=== PATIENT | male | born 1995 | race African-American/Black ===

== ENCOUNTER 2019-08-08 14:54 | Emergency (ER) | payer SELFPAY ==
[~2019-08-08] VITALS: Ht 177.8 cm; Wt 70.3 kg
[2019-08-08 16:23] VITALS: BP 132/72
== END 2019-08-08 16:25 | disposition home or self-care (01) ==
LOC: ER 14:54
DX: R10.84 Generalized abdominal pain (principal); F12.10 Cannabis abuse, uncomplicated

== ENCOUNTER 2020-02-18 09:54 | Emergency (ER) | payer MEDICAID, OTHER ==
[~2020-02-18] VITALS: Ht 177.8 cm; Wt 65.8 kg
[2020-02-18 10:27] VITALS: BP 126/72
== END 2020-02-18 13:12 | disposition home or self-care (01) ==
LOC: ER 09:54
DX: R05 Cough (principal); Z20.828 Contact with and (suspected) exposure to other viral communicable diseases
CPT/HCPCS: 36415; 71045; 87426; 99284; C9803; U0003

== ENCOUNTER → 2020-09-24 | Outpatient (CLI) | payer MEDICAID | END | disposition home or self-care (01) | LOC: LAB 15:56 | PROVIDERS: ATTEND Nurse Practitioner Family | DX: Z20.822 Contact with and (suspected) exposure to COVID-19 (principal) | CPT/HCPCS: 36415; 87426 ==

== ENCOUNTER 2024-02-12 09:25 | Emergency (ER) | payer MEDICAID ==
[~2024-02-12] VITALS: Ht 172.7 cm; Wt 64.8 kg
[2024-02-12 10:35] VITALS: BP 112/68; PULSE 71; RESP 16; TEMP 97.9; O2SAT 100
[2024-02-12] MEDS ORDERED: IBUP-1456 PO (11:12)
[2024-02-12] MEDS ORDERED: BACDST PO (11:12)
[2024-02-12] MEDS ORDERED: ACET500T58 PO (11:12)
--- NOTE | 2024-02-12 11:12 | ED.PDOC ---
History of Present Illness(SKN HPI Comments 28 year old male presents for possible abscess to the buttock. Started 4 days Worsens with sitting Taking no medications Denies F/C/N/V/D Chief Complaint: Abscess Time Seen by MD: 10:09 Primary Care Provider: OBEY History of Present Illness: Nurses Notes Allergies: Coded Allergies: NO KNOWN ALLERGIES (Unverified , 08/08/19) Home Meds Active Scripts Acetaminophen (Acetaminophen) 500 Mg Tab, 500 MG PO Q6HP PRN for 10 Days, #40 TAB 0 Refills Prov:JOHANNY LUND WASH OIL COOLER OPERATOR 02/12/24 Ibuprofen (Ibuprofen) 800 Mg Tab, 1 TAB PO TID for 14 Days, #42 TAB 0 Refills Prov:JOHANNY LUND WASH OIL COOLER OPERATOR 02/12/24 Sulfamethoxazole W/Trimethopri (Bactrim Ds Tablet) 1 Tab Tb, 1 TAB PO BID for 7 Days, #14 TAB 0 Refills Prov:JOHANNY LUND WASH OIL COOLER OPERATOR 02/12/24 Information Source: Patient Mode of Arrival: Ambulatory Past Medical History PAST MEDICAL HISTORY: Denies Surgical History: Denies all surgeries Family History Family History: Family hx of DM Social History Smoker: Non-Smoker Alcohol: Denies ETOH Use Drugs: Marijuana Lives In: Home All Other Systems: Reviewed and Negative (PER HPI) Physical Exam General Appearance: No Apparent Distress, Normal HEENT: Normal ENT Inspection, Pharynx Normal, TMs Normal Neck: Full Range of Motion, Non-Tender, Normal, Normal Inspection Respiratory: Chest Non-Tender, Lungs Clear, No Accessory Muscle Use, No Respiratory Distress, Normal Breath Sounds Cardiovascular: No Edema, No JVD, No Murmur, No Gallop, Normal Peripheral Pulses, Regular Rate/Rhythm Breast Exam: Deferred Gastrointestinal: No Organomegaly, Non Tender, No Pulsatile Mass, Normal Bowel Sounds, Soft Genitalia: Deferred Pelvic: Deferred Rectal: Deferred Extremities: No calf tenderness, Normal capillary refill, Normal inspection, Normal range of motion, Non-tender, No pedal edema Musculoskeletal : Extremity Location: Other (pilondial cyst: non fluctuant. TTP. No erythema. ) Apperance: Normal Neurologic: Alert, canvas cutter hand II-XII nml as Tested, No Motor Deficits, Normal Affect, Normal Mood, No Sensory Deficits Cerebellar Function: Normal Reflexes: Normal Skin: Dry, Normal Color, Warm Lymphatic: No Adenopathy Was a procedure done? Was a procedure done?: No Differential Diagnosis (INTG) Differential Diagnosis: Other X-Ray, Labs, Meds, VS Vital Signs Date Time Temp Pulse Resp B/P (MAP) Pulse Ox O2 Delivery O2 Flow Rate FiO2 02/12/24 10:35 71 16 100 Room Air 02/12/24 10:35 97.9 71 16 112/68 (83) 100 97.9 02/12/24 09:46 97.9 71 16 112/68 (83) 100 Time of 1ST Reevaluation: 11:00 Reevaluation 1ST: Improved Patient Education/Counseling: Diagnosis, Treatment Family Education/Counseling: Diagnosis, Treatment Departure 1 Departure Time of Disposition: 11:10 Impression: Primary Impression: Pilonidal cyst Disposition: 01 HOME / SELF CARE / HOMELESS Condition: Stable e-Prescriptions Acetaminophen (Acetaminophen) 500 Mg Tab 500 MG PO Q6HP PRN for 10 Days, #40 TAB 0 Refills Prov: JOHANNY LUND NP 02/12/24 Ibuprofen (Ibuprofen) 800 Mg Tab 1 TAB PO TID for 14 Days, #42 TAB 0 Refills Prov: JOHANNY LUND NP 02/12/24 Sulfamethoxazole W/Trimethopri (Bactrim Ds Tablet) 1 Tab Tb 1 TAB PO BID for 7 Days, #14 TAB 0 Refills Prov: JOHANNY LUND NP 02/12/24 Discharged With: Self Critical Care Note Critical Care Time?: No Stability Stability form required: No Heart Score Heart Score: Heart Score Response (Comments) Value History N/A 0 EKG N/A 0 Age N/A 0 Risk Factors N/A 0 Troponin N/A 0 Total 0 JOHANNY LUND NP Feb 12, 2024 11:12
[2024-02-12] MEDS: cefTRIAXone SOD 1,000 MG VL IM ONE (11:21)
[2024-02-12] MEDS: KETOROLAC TROMETH 60MG/2ML VIAL IM ONE (11:22)
== END 2024-02-12 11:28 | disposition home or self-care (01) ==
LOC: ER 09:25
DX: L05.91 Pilonidal cyst without abscess (principal); F12.10 Cannabis abuse, uncomplicated; Z79.1 Long term (current) use of non-steroidal anti-inflammatories (NSAID)
CPT/HCPCS: 96372; 99284; J0696; J1885

== ENCOUNTER 2024-08-07 08:27 | Emergency (ER) | payer MEDICAID ==
[~2024-08-07] VITALS: Ht 177.8 cm; Wt 64.2 kg
[~2024-08-07 08:27] MED LIST: ACET500T58 PO; BACDST PO; IBUP-1456 PO
[2024-08-07 08:33] VITALS: TEMP 98.3
--- NOTE | 2024-08-07 09:17 | ED.PDOC ---
History of Present Illness HPI Comments 29 y/o M, with no prior medical history presents to the ED for CC of headache. Patient states, he has been experiencing a headache that starts from the base of his neck upwards x1week. Patient relays, associated symptoms of dizziness. Patient denies nausea, vomiting, weakness, fatigue, cough, or sore-throat. No other symptoms or modifying factors present at this time. Chief Complaint: Headache Time Seen by MD: 08:55 Primary Care Provider: HEADACHES Reviewed Notes: Nurses Notes, Medications, Allergies Allergies: Coded Allergies: NO KNOWN ALLERGIES (Unverified , 08/08/19) Home Meds Active Scripts Acetaminophen (Acetaminophen) 500 Mg Tab, 500 MG PO Q6HP PRN for 10 Days, #40 TAB 0 Refills Prov:JOHANNY LUND NP 02/12/24 Ibuprofen (Ibuprofen) 800 Mg Tab, 1 TAB PO TID for 14 Days, #42 TAB 0 Refills Prov:JOHANNY LUND NP 02/12/24 Sulfamethoxazole W/Trimethopri (Bactrim Ds Tablet) 1 Tab Tb, 1 TAB PO BID for 7 Days, #14 TAB 0 Refills Prov:JOHANNY LUND NP 02/12/24 Information Source: Patient Mode of Arrival: Ambulatory Severity: Moderate Timing: Days Duration: Since onset Prehospital treatment: None Past Medical History PAST MEDICAL HISTORY: Denies Surgical History: Denies all surgeries Family History Family History: Family hx of DM Social History Smoker: Non-Smoker Alcohol: Denies ETOH Use Drugs: Marijuana Lives In: Home Constitutional: denies: chills, diaphoresis, fatigue, fever, malaise, sweats, weakness, others EENTM: denies: blurred vision, double vision, ear bleeding, ear discharge, ear drainage, ear pain, ear ringing, eye pain, eye redness, hearing loss, mouth pain, mouth swelling, nasal discharge, nose bleeding, nose congestion, nose pain, photophobia, tearing, throat pain, throat swelling, voice changes, others Respiratory: denies: cough, hemoptysis, orthopnea, SOB at rest, shortness of breath, SOB with excertion, stridor, wheezing, others Cardiovascular: denies: chest pain, dizzy spells, diaphoresis, Dyspnea on exertion, edema, irregular heart beat, left arm pain, lightheadedness, palpitations, PND, syncope, others Gastrointestinal: denies: abdomen distended, abdominal pain, blood streaked bowels, constipated, diarrhea, dysphagia, difficulty swallowing, hematemesis, melena, nausea, poor appetite, poor fluid intake, rectal bleeding, rectal pain, vomiting, others Genitourinary: denies: burning, dysuria, flank pain, frequency, hematuria, incontinence, penile discharge, penile sore, pain, testicle pain, testicle swelling, urgency, others Neurological: reports: dizziness, headache; denies: fainting, left sided numbness, left sided weakness, numbness, paresthesia, pre-existing deficit, right sided numbness, right sided weakness, seizure, speech problems, tingling, tremors, weakness, others Musculoskeletal: denies: back pain, gout, joint pain, joint swelling, muscle pain, muscle stiffness, neck pain, others Integumetry: denies: bruises, change in color, change in hair/nails, dryness, laceration, lesions, lumps, rash, wounds, others Allergic/Immunocompromised: denies: Difficulty Healing, Frequent Infections, Hives, Itching, others Hematologic/Lymphatic: denies: anemia, blood clots, easy bleeding, easy bruising, swollen glands, others Endocrine: denies: excessive hunger, excessive sweating, excessive thirst, excessive urination, flushing, intolerance to cold, intolerance to heat, un explained weight gain, unexplained weight loss, others Psychiatric: denies: anxiety, bipolar disorder, depression, hopeless, panic disorder, schizophrenia, sleepless, suicidal, others All Other Systems: Reviewed and Negative Physical Exam General Appearance: Moderate Distress HEENT: Normal ENT Inspection, Pharynx Normal, TMs Normal Neck: Full Range of Motion, Non-Tender, Normal, Normal Inspection Respiratory: Chest Non-Tender, Lungs Clear, No Accessory Muscle Use, No Respiratory Distress, Normal Breath Sounds Cardiovascular: No Edema, No JVD, No Murmur, No Gallop, Normal Peripheral Pulses, Regular Rate/Rhythm Breast Exam: Deferred Gastrointestinal: No Organomegaly, Non Tender, No Pulsatile Mass, Normal Bowel Sounds, Soft Genitalia: Deferred Pelvic: Deferred Rectal: Deferred Extremities: No calf tenderness, Normal capillary refill, Normal inspection, Normal range of motion, Non-tender, No pedal edema Musculoskeletal : Apperance: Normal Neurologic: Alert, province archivist II-XII nml as Tested, No Motor Deficits, Normal Affect, Normal Mood, No Sensory Deficits Cerebellar Function: Normal Reflexes: Normal Skin: Dry, Normal Color, Warm Peripheral Pulses: 3+ Radial (R), 3+ Radial (L) Lymphatic: No Adenopathy Was a procedure done? Was a procedure done?: No Differential Dx Considerations may include: GENERALIZED HEADACHE, MIGRAINE, DEHYDRATION X-Ray, Labs, Meds, VS Vital Signs Date Time Temp Pulse Resp B/P (MAP) Pulse Ox O2 Delivery O2 Flow Rate FiO2 08/07/24 08:33 98.3 100 16 128/67 (87) 100 98.3 [place] [id number] Ph: [phone] DIAGNOSTIC IMAGING Diagnostic Imaging Report : [id number] Signed PATIENT: CON GARZA ACCT: [id number] UNIT: [id number] : 1995 LOC: ER ROOM / BED: / AGE / SEX: 29 / M ADM STATUS: REG ER SERVICE 1 ORDERING PHYSICIAN: ALVA KARIMI MD PROCEDURE(s): HWOCT - HEAD WITHOUT CONTRAST REASON: headache ORDER NUMBER(s): [id number], ACCESSION NUMBER(s): [id number] CT HEAD WITHOUT CONTRAST: HISTORY: headache COMPARISON: None CONTRAST: Study was performed without contrast. TECHNIQUE: Axial images from the skull base to the vertex with coronal and sagittal reformatted images. Dose reduction technique was used on this scan by utilizing automated exposure control, adjustment of the mA and/or kV according to the patient size. DICOM format image data available to non-affiliated external healthcare facilities or entities on a secure, media free, reciprocally searchable basis with patient authorization for at least a 12 month period after the study. FINDINGS: There is no intracranial hemorrhage, extraaxial fluid collection, mass effect, or midline shift. There is frontal parafalcine calcification, nonspecific. The ventricles are normal in size. Streak artifact slightly limits evaluation of the craniocervical junction. Intraorbital structures are unremarkable. Paranasal sinuses and mastoid air cells are clear. Calvarium is intact. IMPRESSION: 1. Negative CT scan of the head. ATED BY: RADHA CARTWRIGHT MD DICTATED DATE/TIME: 08/07/24930 SIGNED BY: RADHA CARTWRIGHT MD SIGNED DATE/TIME: 08/07/24930 CC: Patient alert. Came in because of headache. Vitals stable. Answering questions. CT of the head reviewed does not show any acute changes. Ambulating. No sign of distress. Good muscle strength. Denies chest pain. Denies shortness a breath. Explained to the patient. Was told to follow up with his primary care physician. Was told to come back if there is any problem. Time of 1ST Reevaluation: 09: Reevaluation 1ST: Unchanged Patient Education/Counseling: Diagnosis, Treatment Family Education/Counseling: No Family Present SEPSIS Sepsis Screen Date sepsis recognized/suspect: Aug 07, 2024 Time Sepsis recognized/suspect: 832 Recent Procedure: No On Antibiotic Therapy: No Respiratory Rate >20: No Heart Rate >90: Yes Temp<36 C (96.8 F) or >38.3 C: No SBP <90 or MAP <65 mmHG: No New Acute Mental Status Change: No Is the patient on CPAP, BIPAP,: No Physician Orders Head Without Contrast (08/07/24 09:02) Vital Signs Date Time Temp Pulse Resp B/P (MAP) Pulse Ox O2 Delivery O2 Flow Rate FiO2 08/07/24 08:33 98.3 100 16 128/67 (87) 100 98.3 Departure 1 Departure Time of Disposition: 10:11 Impression: Primary Impression: Autonomic disorder Disposition: 01 HOME / SELF CARE / HOMELESS Condition: Good Discharged With: Self Critical Care Note Critical Care Time?: No Stability Stability form required: No Heart Score Heart Score: Heart Score Response (Comments) Value History N/A 0 EKG N/A 0 Age N/A 0 Risk Factors N/A 0 Troponin N/A 0 Total 0 I personally scribed for ALVA KARIMI MD ([email or web address]) on 08/07/24 at 09:17. Electronically submitted by Noemy Borja ([email or web address]). I personally scribed for ALVA KARIMI MD ([email or web address]) on 08/07/24 at 09:38. Electronically submitted by Noemy Borja ([email or web address]). ALVA KARIMI MD Aug 07, 2024 09:17
--- NOTE | 2024-08-07 09:33 | DVH ---
CT HEAD WITHOUT CONTRAST: HISTORY: headache COMPARISON: None CONTRAST: Study was performed without contrast. TECHNIQUE: Axial images from the skull base to the vertex with coronal and sagittal reformatted image s. Dose reduction technique was used on this scan by utilizing automated exposure control, adjustment of the mA and/or kV according to the patient size. DICOM format image data available to non-affili ed external healthcare facilities or entities on a secure, media free, reciprocally searchable basis with patient authorization for at least a 12 month period after the study. FINDINGS: There is no intracranial hemorrhage, extraaxial fluid collection, mass effect, or midline shift. Ther e is frontal parafalcine calcification, nonspecific. The ventricles are normal in size. Streak artifa ct slightly limits evaluation of the craniocervical junction. Intraorbital structures are unremarkable. Paranasal sinuses and mastoid air cells are clear. Calvariu m is intact. IMPRESSION: 1. Negative CT scan of the head.
[2024-08-07 10:19] VITALS: BP 139/74; PULSE 71; RESP 18; O2SAT 98
== END 2024-08-07 10:29 | disposition home or self-care (01) ==
LOC: ER 08:27
DX: G90.9 Disorder of the autonomic nervous system, unspecified (principal)
CPT/HCPCS: 70450